=== PATIENT | female | born 1990 | race Caucasian/White ===

== ENCOUNTER 2021-05-22 16:33 | Emergency (ER) | payer OTHER ==
[2021-05-22 17:45] LABS: RED BLOOD COUNT 4.71 M/UL (4.00-5.10); WHITE BLOOD COUNT 4.1 K/UL (4.5-11.0)
[2021-05-22 18:03] LABS: BUN/CREATININE RATIO 15 (0-10)
[2021-05-22] MEDS ORDERED: VENTOLIN HFA 66.7 GM INH (19:15)
[2021-05-22] MEDS ORDERED: MEDROL DOSEPAK 24 MG PO (19:15)
[2021-05-22] MEDS ORDERED: ZITHROMAX250 MG PO (19:15)
== END 2021-05-22 19:19 | disposition home or self-care (01) ==
LOC: ER1 16:33
PROVIDERS: Physician Assistant Medical
DX: U07.1 COVID-19 (principal); J45.909 Unspecified asthma, uncomplicated
CPT/HCPCS: 71045; 80053; 85025; 99285